=== PATIENT | male | born 1950 | race Caucasian/White ===

== ENCOUNTER 2017-06-22 09:20 | Emergency (ER) | payer BC, MEDICARE ==
[~2017-06-22] VITALS: Ht 188 cm; Wt 77.3 kg
[~2017-06-22 09:20] MED LIST: AMBIEN 10MG10 MG PO; ASPIRIN 32325 MG/TAB PO; AZASAN75 MG PO; CALCIUM CARBON500 M1 PO; CALCIUM CARBONATE; CALCIUM CARBONATE PO; CIPRO 100MG TA100 MG PO; IMURAN 50MG TAB50 MG PO; IMURAN50 MG PO; LEVAQUIN 750MG750 M1 PO; NORCO 325 MG-51 TAB PO; NORCO 325 MG-7.1 TAB; NORCO 325 MG-7.1 TAB PO; PHENERGAN 25 TA25 MG PO; PRAVACHOL 20MG20 MG PO; PRAVACHOL10 MG PO; PRAVASTATIN SOD20 MG PO; PREDNISONE10 MG PO; PREDNISONE20 MG PO; ROXICODONE 55 MG/TAB; SEPTRA 400 MG-1 TAB PO; VITAMIN B121000 MC2 SL; VITAMIN D1000 IU PO; VITAMIN D31000 IU PO; ZANTAC 150MG T150 MG PO; ZOFRAN 4MG T4 MG/TAB PO
[2017-06-22 09:41] VITALS: TEMP 97.6
[2017-06-22 12:01] VITALS: BP 119/66; PULSE 60
== END 2017-06-22 12:02 | disposition home or self-care (01) ==
LOC: COL.ER 09:20
DX: S01.21XA Laceration without foreign body of nose, initial encounter (principal); R04.0 Epistaxis; W01.0XXA Fall on same level from slipping, tripping and stumbling without subsequent striking against object, initial encounter

== ENCOUNTER 2017-11-12 16:17 | Emergency (ER) | payer BC, MEDICARE ==
[~2017-11-12] VITALS: Ht 185.4 cm; Wt 78.6 kg
[2017-11-12 16:24] VITALS: BP 113/65
[2017-11-12 17:49] VITALS: PULSE 57; TEMP 98
== END 2017-11-12 17:50 | disposition home or self-care (01) ==
LOC: COL.ER 16:17
DX: S61.412A Laceration without foreign body of left hand, initial encounter (principal); Z86.73 Personal history of transient ischemic attack (TIA), and cerebral infarction without residual deficits; Z23 Encounter for immunization; W23.0XXA Caught, crushed, jammed, or pinched between moving objects, initial encounter; Y92.009 Unspecified place in unspecified non-institutional (private) residence as the place of occurrence of the external cause

== ENCOUNTER 2018-01-02 16:20 | Inpatient (IN) | payer BC, MEDICARE ==
[~2018-01-02] VITALS: Ht 185.4 cm; Wt 87.5 kg
[2018-01-02] VITALS (24 sets, daily range): BP systolic 94; BP diastolic 50; PULSE 79; TEMP 98.1; O2SAT 94–99
[2018-01-02 16:41] LABS: HEMATOCRIT 42.5 % (42.0-52.0); HEMOGLOBIN 14.2 g/dl (13.5-18.0); MEAN CELL VOLUME 101 fl (80.0-100.0); MEAN CORPUSCULAR HEMOGLOBIN 34 pg (27.0-31.0); MEAN CORPUSCULAR HGB CONC 33 g/dl (33.0-37.0); MEAN PLATELET VOLUME 10.2 fl (7.4-10.4); PLATELET COUNT 209 K/mm3 (130-400); RED BLOOD COUNT 4.21 M/mm3 (4.20-5.60); REDCELL DISTRIBUTION WIDTH-CV 15.8 % (11.5-14.5)
[2018-01-02 16:55] LABS: ALBUMIN 3.6 gm/dL (3.5-5.0); BILIRUBIN,TOTAL 0.7 mg/dL (0.0-1.0); C-REACTIVE PROTEIN 1.4 mg/dL (0.0-0.9); CALCIUM 8.8 mg/dL (8.4-10.2); CREATININE, serum 0.91 mg/dL (0.66-1.25); POTASSIUM 3.7 mmol/L (3.4-5.0); TOTAL PROTEIN 6.4 gm/dL (6.4-8.2)
[2018-01-02 17:45] LABS: ANISOCYTOSIS 2+; BAND 15 % (0-10); LYMPHOCYTE 6 % (20.0-51.0); MICROCYTOSIS 1+; NEUTROPHILS 77 % (42.0-75.2); PLATELET ESTIMATE NORMAL (NORMAL)
[2018-01-02 21:49] LABS: PROTHROMBIN TIME 11.9 SECONDS (9.7-12.8)
[2018-01-03] VITALS (819 sets, daily range): BP systolic 98–110; BP diastolic 57–72; PULSE 56–76; TEMP 97.7–98.8; O2SAT 43–100
[2018-01-03 02:54] LABS: COLLECTION METHOD CLEAN CATCH
[2018-01-03 03:00] LABS: MUCOUS Present /lpf; PH 5 (5-8); SQUAMOUS EPITHELIAL 0-2 /hpf; URINE APPEARANCE Clear; URINE BACTERIA None Seen /hpf; URINE BILIRUBIN Negative (NEGATIVE); URINE BLOOD Negative (NEGATIVE); URINE COLOR Yellow; URINE GLUCOSE Negative (NEGATIVE); URINE KETONE Negative (NEGATIVE); URINE LEUKOCYTE ESTERASE Negative (NEGATIVE); URINE NITRATE Negative (NEGATIVE); URINE PROTEIN(semi-quant) Negative (NEGATIVE); URINE RBC 0-2 /hpf; URINE UROBILINOGEN Negative (NEGATIVE)
[2018-01-03 05:40] LABS: MEAN CELL VOLUME 101 fl (80.0-100.0); MEAN CORPUSCULAR HGB CONC 33 g/dl (33.0-37.0); MEAN PLATELET VOLUME 10.4 fl (7.4-10.4); PLATELET COUNT 144 K/mm3 (130-400); RED BLOOD COUNT 3.35 M/mm3 (4.20-5.60); REDCELL DISTRIBUTION WIDTH-CV 15.9 % (11.5-14.5)
[2018-01-03 05:42] LABS: HEMATOCRIT 33.8 % (42.0-52.0); HEMOGLOBIN 11.3 g/dl (13.5-18.0); MEAN CORPUSCULAR HEMOGLOBIN 34 pg (27.0-31.0)
[2018-01-03 05:50] LABS: ALBUMIN 2.5 gm/dL (3.5-5.0); BILIRUBIN,TOTAL 0.4 mg/dL (0.0-1.0); CALCIUM 7.2 mg/dL (8.4-10.2); CREATININE, serum 0.84 mg/dL (0.66-1.25); POTASSIUM 3.9 mmol/L (3.4-5.0); TOTAL PROTEIN 4.9 gm/dL (6.4-8.2)
[2018-01-03 06:19] LABS: TSH w REFLEX 0.543 uIU/mL (0.465-4.680)
[2018-01-03 06:26] LABS: BAND 9 % (0-10); BASOPHIL 1 % (0-2); LYMPHOCYTE 11 % (20.0-51.0); METAMYELOCYTE 1 % (0-0); MYELOCYTE 1 % (0-0); NEUTROPHILS 68 % (42.0-75.2)
[2018-01-03 06:30] LABS: HYPOCHROMIA 1+; POIKILOCYTOSIS 2+
[2018-01-03 06:31] LABS: MICROCYTOSIS 1+
[2018-01-03 06:32] LABS: ANISOCYTOSIS 1+; PLATELET ESTIMATE NORMAL (NORMAL)
[2018-01-03 08:09] LABS: PATHOLOGY DIFF REVIEW OK +
[2018-01-04] VITALS (474 sets, daily range): BP systolic 112–138; BP diastolic 66–91; PULSE 56–62; TEMP 97.9–98.5; O2SAT 66–100
[2018-01-04 05:21] LABS: MEAN CELL VOLUME 102 fl (80.0-100.0); MEAN CORPUSCULAR HEMOGLOBIN 34 pg (27.0-31.0); MEAN CORPUSCULAR HGB CONC 33 g/dl (33.0-37.0); MEAN PLATELET VOLUME 10.5 fl (7.4-10.4); PLATELET COUNT 139 K/mm3 (130-400); RED BLOOD COUNT 3.28 M/mm3 (4.20-5.60); REDCELL DISTRIBUTION WIDTH-CV 16.5 % (11.5-14.5)
[2018-01-04 05:25] LABS: HEMATOCRIT 33.3 % (42.0-52.0)
[2018-01-04 05:28] LABS: INR 1.2 (0.8-3.0); PROTHROMBIN TIME 13.6 SECONDS (9.7-12.8)
[2018-01-04 05:31] LABS: CALCIUM 7.4 mg/dL (8.4-10.2); CREATININE, serum 0.75 mg/dL (0.66-1.25); MAGNESIUM 2.2 mg/dL (1.6-2.3); POTASSIUM 3.7 mmol/L (3.4-5.0)
[2018-01-04 05:43] LABS: BAND 24 % (0-10); EOSINOPHIL 2 % (0-4); LYMPHOCYTE 8 % (20.0-51.0); NEUTROPHILS 54 % (42.0-75.2); PLATELET ESTIMATE NORMAL (NORMAL)
[2018-01-04 05:44] LABS: ANISOCYTOSIS 2+
[2018-01-05] VITALS: BP 139/92; PULSE 55; TEMP 98.1
[2018-01-05 04:00] VITALS: BP 146/92; PULSE 55; TEMP 97.7
[2018-01-05 06:01] LABS: HEMATOCRIT 35.9 % (42.0-52.0); MEAN CELL VOLUME 101 fl (80.0-100.0); MEAN CORPUSCULAR HEMOGLOBIN 34 pg (27.0-31.0); MEAN CORPUSCULAR HGB CONC 33 g/dl (33.0-37.0); MEAN PLATELET VOLUME 10.6 fl (7.4-10.4); PLATELET COUNT 151 K/mm3 (130-400); RED BLOOD COUNT 3.55 M/mm3 (4.20-5.60); REDCELL DISTRIBUTION WIDTH-CV 16.7 % (11.5-14.5)
[2018-01-05 06:05] LABS: INR 1.1 (0.8-3.0)
[2018-01-05 06:14] LABS: CALCIUM 8.6 mg/dL (8.4-10.2); CREATININE, serum 0.7 mg/dL (0.66-1.25); POTASSIUM 4.2 mmol/L (3.4-5.0)
[2018-01-05 06:17] LABS: BAND 9 % (0-10); BASOPHIL 1 % (0-2); EOSINOPHIL 6 % (0-4); LYMPHOCYTE 18 % (20.0-51.0); NEUTROPHILS 44 % (42.0-75.2); PLATELET ESTIMATE NORMAL (NORMAL)
[2018-01-05 06:18] LABS: BURR CELLS 1+; POLYCHROMASIA 1+
[2018-01-05 06:19] LABS: ANISOCYTOSIS 1+
[2018-01-05 09:20] VITALS: BP 121/76; PULSE 54; TEMP 98.2
[2018-01-05] MEDS ORDERED: XARELTO20 MG PO (09:38)
[2018-01-05] MEDS ORDERED: CORDARONE200 MG/TAB PO (09:44)
[2018-01-05] MEDS ORDERED: AMOXICILLIN 8751 TAB PO (09:47)
[2018-01-05] MEDS ORDERED: DOXYCYCLINE 10100 MG PO (09:48)
== END 2018-01-05 12:30 | disposition home or self-care (01) | DRG 871 ==
LOC: COL.ER 16:20 → MEDICAL 17:22 → ICU 17:22
PROVIDERS: Family Medicine; Hospitalist; Nurse Practitioner; Nurse Practitioner Family; Physician Assistant
DX: A41.9 Sepsis, unspecified organism (principal); J18.9 Pneumonia, unspecified organism; Z94.0 Kidney transplant status; I69.351 Hemiplegia and hemiparesis following cerebral infarction affecting right dominant side; I48.91 Unspecified atrial fibrillation; Z96.643 Presence of artificial hip joint, bilateral; Z90.81 Acquired absence of spleen
CPT/HCPCS: 99223-AI; 99233-AI; J0282; J0456; J0696; J1200; J1650; J2405; J2543; J3370; J3475; J7030; J7050; J7060; J7500; J7512

== ENCOUNTER 2018-06-27 13:23 | Emergency (ER) | payer BC ==
[~2018-06-27] VITALS: Ht 185.4 cm; Wt 79.5 kg
[~2018-06-27 13:23] MED LIST changes: +AMOXICILLIN 8751 TAB PO; +CORDARONE200 MG/TAB PO; +DOXYCYCLINE 10100 MG PO; +XARELTO20 MG PO
[2018-06-27 13:31] VITALS: TEMP 97.6
[2018-06-27] MEDS ORDERED: CORDARONE200 MG/TAB PO (14:04)
[2018-06-27 15:31] VITALS: BP 99/60; PULSE 60
== END 2018-06-27 15:33 | disposition home or self-care (01) ==
LOC: COL.ER 13:23
DX: S76.311A Strain of muscle, fascia and tendon of the posterior muscle group at thigh level, right thigh, initial encounter (principal); S00.93XA Contusion of unspecified part of head, initial encounter; I48.91 Unspecified atrial fibrillation; Z79.02 Long term (current) use of antithrombotics/antiplatelets; W00.0XXA Fall on same level due to ice and snow, initial encounter

== ENCOUNTER 2018-07-03 09:38 | Inpatient (IN) | payer BC ==
[~2018-07-03] VITALS: Ht 185.4 cm; Wt 74.5 kg
[2018-07-03] VITALS (10 sets, daily range): BP systolic 109–129; BP diastolic 50–59; PULSE 61–75; TEMP 98.6–99.1
[2018-07-03 10:03] LABS: MEAN CELL VOLUME 105 fl (80.0-100.0); MEAN CORPUSCULAR HGB CONC 32 g/dl (33.0-37.0); MEAN PLATELET VOLUME 10.2 fl (7.4-10.4); PLATELET COUNT 284 K/mm3 (130-400); RED BLOOD COUNT 2.25 M/mm3 (4.20-5.60); REDCELL DISTRIBUTION WIDTH-CV 16.9 % (11.5-14.5)
[2018-07-03 10:05] LABS: HEMATOCRIT 23.6 % (42.0-52.0); HEMOGLOBIN 7.6 g/dl (13.5-18.0); MEAN CORPUSCULAR HEMOGLOBIN 34 pg (27.0-31.0)
[2018-07-03 10:08] LABS: INR 2.1 (0.8-3.0); PROTHROMBIN TIME 23.8 SECONDS (9.7-12.8)
[2018-07-03 10:13] LABS: ALBUMIN 3.3 gm/dL (3.5-5.0); BILIRUBIN,TOTAL 1.1 mg/dL (0.0-1.0); CALCIUM 8.5 mg/dL (8.4-10.2); CREATININE, serum 0.79 mg/dL (0.66-1.25); POTASSIUM 4.3 mmol/L (3.4-5.0); TOTAL PROTEIN 6.2 gm/dL (6.4-8.2)
[2018-07-03] MEDS ORDERED: AZASAN75 MG PO (10:22)
[2018-07-03 10:33] LABS: ANISOCYTOSIS 1+; BAND 3 % (0-10); EOSINOPHIL 6 % (0-4); HYPOCHROMIA 1+; LYMPHOCYTE 5 % (20.0-51.0); NEUTROPHILS 72 % (42.0-75.2); NUCLEATED RED BLOOD CELL 2 (0-6); PLATELET ESTIMATE NORMAL (NORMAL); POLYCHROMASIA 2+
--- NOTE | 2018-07-03 15:50 | NUR ---
Patient to unit via stretcher from ER. Complains of pain during movement to right leg, mostly on inner thigh according to patient. He states he feels as if the pain is coming from his hamstring. Patient reports the bruising to the lower extremity is dependent and not painful. There is 2+ edema to the right lower extremity. Patient states he is short of breath upon exertion but otherwise fine.
--- NOTE | 2018-07-03 18:09 | NUR ---
Patient resting in bed receiving blood transfusion, is with him. Was looking through menu to order supper, declined assistance with ordering. Patient is tolerating transfusion well. Denies pain, shortness of breath or discomfort of any kind. Vital signs have remained stable. Has no other needs at this time. Call light is within reach.
[2018-07-03 20:16] LABS: HEMATOCRIT 23.5 % (42.0-52.0); HEMOGLOBIN 7.6 g/dl (13.5-18.0)
--- NOTE | 2018-07-03 20:50 | NUR ---
Patient resting in bed, states he feels much awake and alert after 1 unit of blood. Hgb remains unchanged at 7.6, MARY Mondragon notified, will recheck at 0500 tomorrow morning, if patient status changes/becomes symptomatic this nurse will notify MARY Mondragon. Denies pain. Able to ambulate without difficulty. VSS, denies pain. No further needs at this tiem.
[2018-07-04] VITALS (7 sets, daily range): BP systolic 106–126; BP diastolic 56–64; PULSE 56–99; TEMP 98.2–99.4
--- NOTE | 2018-07-04 00:11 | NUR ---
Patient ambulated to restroom with SBA. States prior to blood transfusion this would have made him very tired and SOB. Patient tolerating ambulating this time well and returned to bed.
--- NOTE | 2018-07-04 05:23 | NUR ---
Patient slept on/off last night. VSS, denies pain. Able to ambulate to restroom with SBA. Feels better after transfusion of 1 unit of PRBC yesterday. No further needs at this time.
[2018-07-04 06:12] LABS: MEAN CELL VOLUME 102 fl (80.0-100.0); MEAN CORPUSCULAR HGB CONC 32 g/dl (33.0-37.0); MEAN PLATELET VOLUME 10.4 fl (7.4-10.4); PLATELET COUNT 259 K/mm3 (130-400); RED BLOOD COUNT 2.18 M/mm3 (4.20-5.60); REDCELL DISTRIBUTION WIDTH-CV 17.4 % (11.5-14.5)
[2018-07-04 06:22] LABS: HEMATOCRIT 22.3 % (42.0-52.0); HEMOGLOBIN 7.2 g/dl (13.5-18.0); MEAN CORPUSCULAR HEMOGLOBIN 33 pg (27.0-31.0)
[2018-07-04 06:32] LABS: CALCIUM 8.1 mg/dL (8.4-10.2); CREATININE, serum 0.76 mg/dL (0.66-1.25); POTASSIUM 4.2 mmol/L (3.4-5.0)
[2018-07-04 08:15] LABS: ANISOCYTOSIS 1+; BAND 6 % (0-10); EOSINOPHIL 3 % (0-4); LYMPHOCYTE 16 % (20.0-51.0); NEUTROPHILS 60 % (42.0-75.2); PLATELET ESTIMATE NORMAL (NORMAL)
[2018-07-04 08:16] LABS: HYPOCHROMIA 1+
--- NOTE | 2018-07-04 08:45 | NUR ---
Assessment complete. Pt is AXO X3, denies having any pain at this time. Breathing is even and unlabored on room air. Tele on. LF infusing, remains free of complications, and is CDI. Pt's is at the bedside; all quesitons answered. Pt is sitting up in the bed eating his breakfast at this time and he denies further needs. Call light within reach, will continue to monitor.
--- NOTE | 2018-07-04 10:46 | NUR ---
Initial visit; Patient and his thanked Occupational Physician for looking in on Ceasar.
--- NOTE | 2018-07-04 13:33 | NUR ---
LEONEL and SW student met with the patient and patient's , Nahomi, to discuss discharge plan. 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 He reports independence with ADLs and has a cane. The patient's PCP is Dr. Vivian Martin and he receives his medications at the [facility]. He reports no difficulties obtaining his meds. The patient does not have advanced directives, but he was interested in obtaining the form for DPOA-HC. LEONEL provided. LEONEL also discussed physical therapies recommendation of outpatient PT. The patient reports that he is interested in outpatient PT and that he has received services at [facility] in the past. He states that he plans to go to them upon discharge and would prefer to make the appointment himself. LEONEL to inform the patient's PA for a PT script. No additional needs at this time.
--- NOTE | 2018-07-04 18:45 | NUR ---
Pt has been resting on and off throughout the day. He has had some discomfort in his R thigh while he was up working with therapy but has denies the desire for pain medicaiton. Pt's has remained at the bedside; all questions answered. Pt is sitting up in the bed watching TV at this time and he denies further needs. Call light within reach. Report given to KARIN Juarez.
[2018-07-04 19:04] LABS: HEMATOCRIT 24.1 % (42.0-52.0); HEMOGLOBIN 7.8 g/dl (13.5-18.0)
--- NOTE | 2018-07-04 22:20 | NUR ---
pt sleeping in bed A+Ox4. no pain. no soa. reports no lightheadedness. no needs at this time. shift assessment complete. call light in reach
--- NOTE | 2018-07-05 03:26 | NUR ---
pt lying in bed awake. reports no pain. no needs at this time. call light in reach
[2018-07-05 03:38] VITALS: BP 121/60; PULSE 63; TEMP 98.3
--- NOTE | 2018-07-05 05:36 | NUR ---
pt slept during night. no c/o pain, soa. no needs at this time. call light in reach
[2018-07-05 06:52] LABS: MEAN CELL VOLUME 103 fl (80.0-100.0); MEAN CORPUSCULAR HGB CONC 32 g/dl (33.0-37.0); MEAN PLATELET VOLUME 10.6 fl (7.4-10.4); PLATELET COUNT 313 K/mm3 (130-400)
[2018-07-05 06:59] LABS: HEMATOCRIT 23.6 % (42.0-52.0); HEMOGLOBIN 7.6 g/dl (13.5-18.0); MEAN CORPUSCULAR HEMOGLOBIN 33 pg (27.0-31.0)
[2018-07-05 07:17] LABS: CALCIUM 8.3 mg/dL (8.4-10.2); CREATININE, serum 0.75 mg/dL (0.66-1.25); POTASSIUM 4.4 mmol/L (3.4-5.0)
[2018-07-05 07:45] VITALS: BP 112/51; PULSE 63; TEMP 98.9
--- NOTE | 2018-07-05 07:45 | NUR ---
Assessment complete. Pt is AXO X3, denies having any pain at this time. Breathing is even and unlabored on room air. Tele on. LF INT flushes easily, remains free of complications, and is CDI. Pt is sitting up in the bed finishing his breakfast at this time and he denies further needs. Call light within reach, will continue to monitor.
[2018-07-05 09:04] LABS: BAND 3 % (0-10); EOSINOPHIL 2 % (0-4); HYPOCHROMIA 3+; LYMPHOCYTE 10 % (20.0-51.0); NEUTROPHILS 63 % (42.0-75.2); NUCLEATED RED BLOOD CELL 1 (0-6); PLATELET ESTIMATE NORMAL (NORMAL)
[2018-07-05] MEDS ORDERED: FERROUS SU325 MG/TAB PO (09:07)
[2018-07-05] MEDS ORDERED: XARELTO20 MG PO (09:08)
[2018-07-05 11:21] VITALS: BP 99/52; PULSE 68; TEMP 98.5
--- NOTE | 2018-07-05 15:00 | NUR ---
Pt discharged at this time. LF INT discontinued with the catheter tip intact. Education provided and all questions were answered. Pt verbalizes understanding. Pt escourted out ambulatory with tech. Stevan
== END 2018-07-05 15:00 | disposition home or self-care (01) | DRG 812 ==
LOC: COL.ER 09:38 → MEDICAL 10:37
PROVIDERS: Emergency Medicine; Internal Medicine; Physician Assistant; ADMIT Hospitalist
DX: D62 Acute posthemorrhagic anemia (principal); Z94.0 Kidney transplant status; I69.351 Hemiplegia and hemiparesis following cerebral infarction affecting right dominant side; E87.1 Hypo-osmolality and hyponatremia; S70.11XA Contusion of right thigh, initial encounter; M25.461 Effusion, right knee; S76.811D Strain of other specified muscles, fascia and tendons at thigh level, right thigh, subsequent encounter; W18.30XA Fall on same level, unspecified, initial encounter; I48.0 Paroxysmal atrial fibrillation; Z79.01 Long term (current) use of anticoagulants; Z85.828 Personal history of other malignant neoplasm of skin; Z87.891 Personal history of nicotine dependence
CPT/HCPCS: 99223-AI; 99232-AI; 99239; J7030; J7050; J7500; J7512; P9016

== ENCOUNTER 2018-07-08 13:34 | Emergency (ER) | payer BC ==
[~2018-07-08] VITALS: Ht 185.4 cm; Wt 79.5 kg
[~2018-07-08 13:34] MED LIST changes: +FERROUS SU325 MG/TAB PO
[2018-07-08 13:38] VITALS: TEMP 97.8
[2018-07-08 14:37] LABS: HEMATOCRIT 28.1 % (42.0-52.0); HEMOGLOBIN 8.9 g/dl (13.5-18.0); MEAN CELL VOLUME 105 fl (80.0-100.0); MEAN CORPUSCULAR HEMOGLOBIN 33 pg (27.0-31.0); MEAN CORPUSCULAR HGB CONC 32 g/dl (33.0-37.0); MEAN PLATELET VOLUME 10.2 fl (7.4-10.4); PLATELET COUNT 430 K/mm3 (130-400); RED BLOOD COUNT 2.67 M/mm3 (4.20-5.60); REDCELL DISTRIBUTION WIDTH-CV 17.4 % (11.5-14.5)
[2018-07-08] MEDS ORDERED: NORCO 325 MG-51 TAB PO (14:51)
[2018-07-08] MEDS ORDERED: NEURONTIN300 MG/CAP PO (14:52)
[2018-07-08 14:56] LABS: ALBUMIN 3.3 gm/dL (3.5-5.0); BILIRUBIN,TOTAL 1.1 mg/dL (0.0-1.0); C-REACTIVE PROTEIN 5.9 mg/dL (0.0-0.9); CALCIUM 8.5 mg/dL (8.4-10.2); CREATININE, serum 0.75 mg/dL (0.66-1.25); POTASSIUM 4.2 mmol/L (3.4-5.0); TOTAL PROTEIN 6.2 gm/dL (6.4-8.2)
[2018-07-08] MEDS ORDERED: CEPHALEXIN500 M1 PO (16:04)
[2018-07-08 16:26] VITALS: BP 126/76; PULSE 61
[2018-07-08 17:02] LABS: ANISOCYTOSIS 1+; BAND 5 % (0-10); LYMPHOCYTE 9 % (20.0-51.0); NEUTROPHILS 76 % (42.0-75.2); NUCLEATED RED BLOOD CELL 2 (0-6); PLATELET ESTIMATE INCREASED (NORMAL)
[2018-07-08 17:03] LABS: BURR CELLS 1+; OVALOCYTES 1+
== END 2018-07-08 16:27 | disposition home or self-care (01) ==
LOC: COL.ER 13:34
PROVIDERS: Nurse Practitioner
DX: L03.115 Cellulitis of right lower limb (principal); I10 Essential (primary) hypertension; I48.91 Unspecified atrial fibrillation; Z87.891 Personal history of nicotine dependence; W00.0XXA Fall on same level due to ice and snow, initial encounter; Y92.59 Other trade areas as the place of occurrence of the external cause

== ENCOUNTER 2018-07-14 08:00 | Outpatient (RCR) | payer OTHER ==
[~2018-07-14 08:00] MED LIST changes: +CEPHALEXIN500 M1 PO; +NEURONTIN300 MG/CAP PO
== END 2018-10-10 | disposition home or self-care (01) ==
LOC: WSPT
DX: S76.311D Strain of muscle, fascia and tendon of the posterior muscle group at thigh level, right thigh, subsequent encounter (principal); M79.661 Pain in right lower leg; S09.90XD Unspecified injury of head, subsequent encounter; D64.9 Anemia, unspecified; W00.0XXD Fall on same level due to ice and snow, subsequent encounter; Z96.652 Presence of left artificial knee joint; Z96.643 Presence of artificial hip joint, bilateral; Z94.0 Kidney transplant status; Z98.890 Other specified postprocedural states; Z79.01 Long term (current) use of anticoagulants; Z79.891 Long term (current) use of opiate analgesic; Z79.899 Other long term (current) drug therapy

== ENCOUNTER → 2018-09-13 | Outpatient (CLI) | payer BC | LOC: COL.VAS 13:30 | DX: Z13.6 Encounter for screening for cardiovascular disorders (principal); I82.409 Acute embolism and thrombosis of unspecified deep veins of unspecified lower extremity ==

== ENCOUNTER → 2018-10-16 | Outpatient (CLI) | payer BC | LOC: COL.RAD 14:55 | DX: I89.0 Lymphedema, not elsewhere classified (principal); M16.0 Bilateral primary osteoarthritis of hip; R10.31 Right lower quadrant pain; R19.07 Generalized intra-abdominal and pelvic swelling, mass and lump; Z94.0 Kidney transplant status ==

== ENCOUNTER → 2018-10-19 | Outpatient (CLI) | payer BC | LOC: COL.RAD 09:45 | DX: N13.8 Other obstructive and reflux uropathy (principal); N40.0 Benign prostatic hyperplasia without lower urinary tract symptoms ==

== ENCOUNTER 2019-03-09 15:36 | Emergency (ER) | payer BC, MEDICARE ==
[~2019-03-09] VITALS: Ht 185.4 cm; Wt 79.5 kg
[2019-03-09 15:39] VITALS: TEMP 97.7
[2019-03-09] MEDS ORDERED: NORCO 325 MG-51 TAB PO (16:28)
[2019-03-09] MEDS ORDERED: LIDODERM 5% PATC1 EA TP (16:29)
[2019-03-09 17:34] VITALS: BP 128/68; PULSE 51
== END 2019-03-09 17:35 | disposition home or self-care (01) ==
LOC: COL.ER 15:36
DX: S20.211A Contusion of right front wall of thorax, initial encounter (principal); S60.211A Contusion of right wrist, initial encounter; K21.9 Gastro-esophageal reflux disease without esophagitis; I48.91 Unspecified atrial fibrillation; Z86.73 Personal history of transient ischemic attack (TIA), and cerebral infarction without residual deficits; W01.0XXA Fall on same level from slipping, tripping and stumbling without subsequent striking against object, initial encounter; Y92.003 Bedroom of unspecified non-institutional (private) residence as the place of occurrence of the external cause
CPT/HCPCS: A9284; J3010

== ENCOUNTER 2019-05-08 08:10 | Day surgery (SDC) | payer BC ==
[~2019-05-08] VITALS: Ht 185.4 cm; Wt 80.7 kg
[~2019-05-08 08:10] MED LIST changes: +LIDODERM 5% PATC1 EA TP
[2019-05-08 08:42] VITALS: BP 137/86; PULSE 50; TEMP 97.7
[2019-05-08 09:30] VITALS: BP 114/72; PULSE 54; TEMP 97.7
--- NOTE | 2019-05-08 09:30 | NUR ---
TO BAY 5 PER CART FOLLOWING AN EGD. ALERT ORIENTED X3, TALKING TO STAFF AND . AMBULATED TO RECLINER WITH ASSIST. RECEIVED APPLE JUICE AND MUFFIN.
[2019-05-08 09:45] VITALS: BP 139/89; PULSE 50
--- NOTE | 2019-05-08 09:45 | NUR ---
ATE 100% AND TOLERATED WELL. DR BARTLETT TALKED WITH PRIOR TO PATIENT RETURNING TO .
[2019-05-08] MEDS ORDERED: PRILOSEC 20MG20 MG PO (09:48)
[2019-05-08 09:50] VITALS: BP 132/81; PULSE 49
--- NOTE | 2019-05-08 10:05 | NUR ---
RECEIVED DISCHARGE INSTRUCTIONS AND VERBALIZED UNDERSTANDING. DISCONTINUED IV AND INT- CATHETER INTACT.
--- NOTE | 2019-05-08 10:15 | NUR ---
DISCHARGED PER WC BY NURSING STAFF TO PRIVATE CAR IN CARE OF -MARK
== END 2019-05-08 10:28 | disposition home or self-care (01) ==
LOC: SDCO 08:10
DX: K29.30 Chronic superficial gastritis without bleeding (principal); K44.9 Diaphragmatic hernia without obstruction or gangrene; I48.91 Unspecified atrial fibrillation; K92.1 Melena; M19.90 Unspecified osteoarthritis, unspecified site; I69.351 Hemiplegia and hemiparesis following cerebral infarction affecting right dominant side; D64.9 Anemia, unspecified; K21.9 Gastro-esophageal reflux disease without esophagitis; Z94.0 Kidney transplant status; Z79.01 Long term (current) use of anticoagulants; Z79.52 Long term (current) use of systemic steroids; Z79.82 Long term (current) use of aspirin; Z96.643 Presence of artificial hip joint, bilateral; Z96.652 Presence of left artificial knee joint; Z87.891 Personal history of nicotine dependence
CPT/HCPCS: J2704; J7030

== ENCOUNTER 2019-12-23 07:54 | Emergency (ER) | payer OTHER ==
[~2019-12-23] VITALS: Ht 185.4 cm; Wt 79.5 kg
[~2019-12-23 07:54] MED LIST changes: +PRILOSEC 20MG20 MG PO
[2019-12-23 08:16] VITALS: TEMP 99.2
[2019-12-23 08:48] LABS: COLLECTION METHOD CLEAN CATCH
[2019-12-23 08:55] LABS: BASO # 0.1 (0.0-0.2); BASO % 0.9 % (0.0-2.0); EOS # 0.1 (0.0-0.7); EOS % 0.9 % (0-4.0); GRAN # 5.1 (1.4-6.5); GRAN % 58.6 % (42.2-75.2); HEMATOCRIT 44.2 % (42.0-52.0); HEMOGLOBIN 14.8 g/dl (13.5-18.0); LYMPH # 0.8 (1.2-3.4); LYMPH % 9.2 % (20.0-51.0); MEAN CELL VOLUME 104 fl (80.0-100.0); MEAN CORPUSCULAR HEMOGLOBIN 35 pg (27.0-31.0); MEAN CORPUSCULAR HGB CONC 34 g/dl (33.0-37.0); MEAN PLATELET VOLUME 10.7 fl (7.4-10.4); MONO # 2.6 (0.1-0.6); MONO % 30.2 % (1.7-9.3); PLATELET COUNT 207 K/mm3 (130-400); RED BLOOD COUNT 4.26 M/mm3 (4.20-5.60)
[2019-12-23 09:02] LABS: INR 2.2 (0.8-3.0); PROTHROMBIN TIME 25.1 SECONDS (9.7-12.8)
[2019-12-23 09:05] LABS: ALANINE AMINOTRANSFERASE 17 U/L (4-49); ALBUMIN 4.1 gm/dL (3.5-5.0); ALKALINE PHOSPHATASE 79 U/L (50-136); ANION GAP 8 mmol/L (7-16); AST,SGOT 30 U/L (15-37); BILIRUBIN,TOTAL 0.5 mg/dL (0.0-1.0); BLOOD UREA NITROGEN 18 mg/dL (9-20); C-REACTIVE PROTEIN 1.5 mg/dL (0.0-0.9); CALCIUM 9.5 mg/dL (8.4-10.2); CARBON DIOXIDE 25 mmol/L (22-30); CHLORIDE 101 mmol/L (98-107); CREATININE, serum 0.81 (0.66-1.25); GLUCOSE 105 mg/dL (74-106); POTASSIUM 4.5 mmol/L (3.4-5.0); SODIUM 134 mmol/L (137-145); TOTAL PROTEIN 7.4 gm/dL (6.4-8.2)
[2019-12-23 09:09] LABS: MUCOUS Present /lpf; PH 7 (5-8); SQUAMOUS EPITHELIAL None Seen /hpf; URINE APPEARANCE Clear; URINE BACTERIA None Seen /hpf; URINE BILIRUBIN Negative (NEGATIVE); URINE BLOOD 1+ (NEGATIVE); URINE COLOR Yellow; URINE GLUCOSE Negative (NEGATIVE); URINE KETONE Negative (NEGATIVE); URINE LEUKOCYTE ESTERASE Negative (NEGATIVE); URINE NITRATE Negative (NEGATIVE); URINE PROTEIN(semi-quant) Negative (NEGATIVE); URINE UROBILINOGEN Negative (NEGATIVE)
[2019-12-23 09:23] LABS: TROPONIN-I < 0.012 ng/mL (0.000-0.035)
[2019-12-23] MEDS ORDERED: OMNICEF 300MG300 MG PO (09:31)
[2019-12-23 11:15] VITALS: BP 133/90; PULSE 50
== END 2019-12-23 11:20 | disposition home or self-care (01) ==
LOC: COL.ER 07:54
PROVIDERS: Emergency Medicine
DX: R50.9 Fever, unspecified (principal); I48.91 Unspecified atrial fibrillation; Z87.891 Personal history of nicotine dependence; Z79.01 Long term (current) use of anticoagulants; Z79.52 Long term (current) use of systemic steroids
CPT/HCPCS: J0696; J7030

== ENCOUNTER → 2021-12-09 | Outpatient (CLI) | payer OTHER ==
[~2021-12-09] MED LIST changes: +OMNICEF 300MG300 MG PO
== END ==
LOC: COL.RAD 13:40
DX: M54.9 Dorsalgia, unspecified (principal)
CPT/HCPCS: G0260; J3301